=== PATIENT | female | born 1975 ===

== ENCOUNTER 2017-02-21 16:53 | Emergency (ER) | payer OTHER ==
[2017-02-21 16:53] VITALS: BMI 33.8
[2017-02-21 16:59] VITALS: RESP 18; O2SAT 98
--- NOTE | 2017-02-21 17:24 | C.PDOC ---
History Of Present Illness 41 year old female, without a significant PMH, presents to the emergency room for the evaluation of a sore throat, congestion, and dry cough that gradually developed over the past week. Patient reports being unable to sleep last night due to dry cough. Patient also notes chest pain with dry cough. Patient denies any fever, chills, headaches, dizziness, nausea, vomiting, or any other complaints. Time Seen by Provider: 02/21/17 17:09 Chief Complaint (Nursing): Cough, Cold, Congestion History Per: Patient History/Exam Limitations: no limitations Onset/Duration Of Symptoms: Gradual, Other (1 week) Current Symptoms Are (Timing): Still Present Location Of Pain: None Sick Contacts (Context): None Associated Symptoms: Sore Throat, Cough, Nasal Congestion. denies: Fever, Chills, Nausea, Vomiting, Diarrhea Ear Symptoms: Bilateral: None Severity: Mild Recent travel outside of the [place]: No Past Medical History Reviewed: Historical Data, Nursing Documentation, Vital Signs Vital Signs: Last Vital Signs Temp 98.5 F 02/21/17 16:56 Pulse 90 02/21/17 16:56 Resp 18 02/21/17 16:56 BP 132/78 02/21/17 16:56 Pulse Ox 98 02/21/17 17:31 - Medical History PMH: Hypercholesterolemia - [facility] Procedures BILAT TUBAL DIVISION NEC (04/28/14) INJECT RH IMMUNE GLOBUL (04/28/14) LOW CERVICAL (04/28/14) Family History: States: No Known Family Hx - Social History Hx Tobacco Use: No Hx Alcohol Use: No Hx Substance Use: No - Immunization History Hx Tetanus Toxoid Vaccination: Yes (LAST YEAR) Hx Influenza Vaccination: Yes Hx Pneumococcal Vaccination: No Review Of Systems Except As Marked, All Systems Reviewed And Found Negative. Constitutional: Negative for: Fever, Chills ENT: Positive for: Throat Pain (Sore throat), Other (Nasal congestion) Cardiovascular: Positive for: Chest Pain (with dry cough) Respiratory: Positive for: Cough (Dry cough) Gastrointestinal: Negative for: Nausea, Vomiting, Diarrhea Neurological: Negative for: Headache, Dizziness Physical Exam - Physical Exam Appears: Well, Non-toxic, No Acute Distress, Other (occasional cough noted in ED.) Skin: Normal Color, Warm, No Rash Eye(s): bilateral: PERRL Ear(s): Left: TM Erythema, Right: Normal Nose: Discharge (scant B/L discharges) Oral Mucosa: Moist, No Drooling Throat: Normal, No Erythema, No Exudate, No Drooling Neck: Normal ROM, Trachea Midline, Supple Cardiovascular: Rhythm Regular Respiratory: No Decreased Breath Sounds, No Accessory Muscle Use, No Stridor, Wheezing (scattered bibasilar wheezing, BS equal B/L) Gastrointestinal/Abdominal: Soft, No Tenderness Back: No CVA Tenderness Extremity: No Pedal Edema Neurological/Psych: Oriented x3, Normal Speech ED Course And Treatment O2 Sat by Pulse Oximetry: 98 Pulse Ox Interpretation: Normal - Radiology CXR: Interpreted by Me, Viewed By Me CXR Interpretation: Yes: No Acute Disease - Other Rad CXR X-Ray: Read By Radiologist Interpretation: Creator : Devi Fontana MD. Dictator : Devi Fontana MD. Tray Drier Operator : Knit Tubing Dyer : Devi Fontana MD. Approver2 : Report Date : 02/21/2017 17:54:10. My Comment : . HISTORY: Cough. COMPARISON: None available. TECHNIQUE: Chest PA and lateral. FINDINGS: Examination limited by habitus. LUNGS: No focal consolidation. Please note that chest x-ray has limited sensitivity for the detection of pulmonary masses. PLEURA: No significant pleural effusion identified. No definite pneumothorax . CARDIOVASCULAR: The cardiomediastinal silhouette appears within normal limits of size. OSSEOUS STRUCTURES: No acute osseous abnormality identified. VISUALIZED UPPER ABDOMEN: Unremarkable. OTHER FINDINGS: None. IMPRESSION: No focal consolidation, significant pleural effusion, or definite pneumothorax identified. Progress Note: On re-eval, pt is afebrile, hemodynamicaly stable. Non-toxic. [place] Po well in ED. PulseOx 98% RA. ENT: exam c/w left OM. neck: (-) meningeal sign. LUngs: CTA B/L, BS equal B/L. ABd: benign. CXR- normal study. Pt advised. ref. to f/u with PMD in 2-3 days for re-eval. return if any new changes. Disposition Counseled Patient/Family Regarding: Studies Performed, Diagnosis, Need For Followup, Rx Given - Disposition Referrals: [facility] [Outside] Disposition: HOME/ ROUTINE Disposition Time: 18:00 Condition: STABLE Additional Instructions: Encourage fluids Take medication as prescribed Follow up with PMD in 2-3 days for re-evaluation. Return to ED if any worsening or new changes. Prescriptions: Albuterol HFA [Ventolin HFA 90 mcg/actuation (8 g)] 1 puff IH Q6 #1 inhaler Azithromycin 1 tab PO DAILY #4 tab Benzonatate [Tessalon Perle] 100 mg PO TID #14 capsule Prednisone [Deltasone] 20 mg PO DAILY #3 tablet Instructions: Acute Bronchitis (ED), Otitis Media (ED) Print Language: MALIAN - Clinical Impression Clinical Impression: Bronchitis, Otitis media - Scribe Statement The provider has reviewed the documentation as recorded by the Scribchris Montero All medical record entries made by the Billieibchris were at my direction and personally dictated by me. I have reviewed the chart and agree that the record accurately reflects my personal performance of the history, physical exam, medical decision making, and the department course for this patient. I have also personally directed, reviewed, and agree with the discharge instructions and disposition.
[2017-02-21] MEDS ORDERED: Albuterol 0.083% Inhal Sol (2.5 mg/3 mL) UD IH STA (17:25)
[2017-02-21] MEDS ORDERED: Albuterol 0.083% Inhal Sol (2.5 mg/3 mL) UD ONE (17:36)
--- NOTE | 2017-02-21 17:55 | RAD ---
HISTORY: Cough COMPARISON: None available. TECHNIQUE: Chest PA and lateral FINDINGS: Examination limited by habitus. LUNGS: No focal consolidation. Please note that chest x-ray has limited sensitivity for the detection of pulmonary masses. PLEURA: No significant pleural effusion identified. No definite pneumothorax . CARDIOVASCULAR: The cardiomediastinal silhouette appears within normal limits of size. OSSEOUS STRUCTURES: No acute osseous abnormality identified. VISUALIZED UPPER ABDOMEN: Unremarkable. OTHER FINDINGS: None. IMPRESSION: No focal consolidation, significant pleural effusion, or definite pneumothorax identified.
[2017-02-21 18:19] VITALS: BP 127/75; PULSE 78; TEMP 98.3
== END 2017-02-21 18:20 | disposition home or self-care (01) ==
LOC: C.ER 16:53
DX: J40 Bronchitis, not specified as acute or chronic (principal); H66.92 Otitis media, unspecified, left ear

== ENCOUNTER 2019-01-01 13:46 | Emergency (ER) | payer OTHER ==
[2019-01-01 13:47] VITALS: BMI 33.8
[2019-01-01 14:16] VITALS: BP 125/74; PULSE 73; RESP 18; TEMP 97.7; O2SAT 100
--- NOTE | 2019-01-01 14:32 | C.PDOC ---
History Of Present Illness 43 y/o female presents to the ED for evaluation of new-onset left knee pain since last night. She complains of pain to the bilateral knees to the anterior aspect, which worsens on bending and extension. Patient denies any trauma or fall. She also denies any swelling or other associated symptoms. Patient reports limited relief with 400mg Advil. Time Seen by Provider: 01/01/19 14:18 Chief Complaint (Nursing): Lower Extremity Problem/Injury History Per: Patient History/Exam Limitations: no limitations Onset/Duration Of Symptoms: Days Current Symptoms Are (Timing): Still Present Past Medical History Reviewed: Historical Data, Nursing Documentation, Vital Signs Vital Signs: Last Vital Signs Temp 97.7 F 01/01/19 14:14 Pulse 73 01/01/19 14:14 Resp 18 01/01/19 14:14 BP 125/74 01/01/19 14:14 Pulse Ox 100 01/01/19 14:14 - Medical History PMH: Hypercholesterolemia - [facility] Procedures BILAT TUBAL DIVISION NEC (04/28/14) INJECT RH IMMUNE GLOBUL (04/28/14) LOW CERVICAL (04/28/14) Family History: States: Unknown Family Hx - Social History Hx Tobacco Use: No Hx Alcohol Use: No Hx Substance Use: No - Immunization History Hx Tetanus Toxoid Vaccination: Yes (LAST YEAR) Hx Influenza Vaccination: Yes Hx Pneumococcal Vaccination: No Review Of Systems Except As Marked, All Systems Reviewed And Found Negative. Constitutional: Negative for: Fever Cardiovascular: Negative for: Chest Pain Respiratory: Negative for: Shortness of Breath Gastrointestinal: Negative for: Abdominal Pain Musculoskeletal: Positive for: Leg Pain (B/L knee pain) Skin: Negative for: Rash, Lesions Neurological: Negative for: Weakness, Numbness Physical Exam - Physical Exam Appears: Well, Non-toxic, No Acute Distress Skin: Normal Color, Warm, Dry Head: Atraumatic, Normacephalic Eye(s): bilateral: Normal Inspection, PERRL, EOMI Neck: Normal ROM Chest: Symmetrical Respiratory: No Accessory Muscle Use, Other (NARD) Extremity: No Tenderness, No Deformity (or subluxation), No Swelling, Other (Reproducible pain with hyperflexion > extension of left knee) Pulses: Left Dorsalis Pedis: Normal, Right Dorsalis Pedis: Normal Neurological/Psych: Oriented x3, Normal Speech ED Course And Treatment O2 Sat by Pulse Oximetry: 100 (RA) Pulse Ox Interpretation: Normal Medical Decision Making Medical Decision Making: Plan: - 800 mg PO motrin - 50 mg PO tramadol Disposition Counseled Patient/Family Regarding: Diagnosis, Need For Followup, Rx Given - Disposition Referrals: [facility] [Outside] [facility] [Outside] Disposition: HOME/ ROUTINE Disposition Time: 14:31 Condition: IMPROVED Prescriptions: Ibuprofen [Motrin] 600 mg PO Q6 #30 tab Tramadol HCl [Ultram] 50 mg PO QID #20 tab Instructions: Knee Sprain (DC) Forms: [employer] ([place]) - Clinical Impression Clinical Impression: Knee tendonitis - Scribe Statement The provider has reviewed the documentation as recorded by the Favian Ortega Provider Attestation: All medical record entries made by the Favian were at my direction and personally dictated by me. I have reviewed the chart and agree that the record accurately reflects my personal performance of the history, physical exam, medical decision making, and the department course for this patient. I have also personally directed, reviewed, and agree with the discharge instructions and disposition.
== END 2019-01-01 15:06 | disposition home or self-care (01) ==
LOC: C.ER 13:46
DX: M76.9 Unspecified enthesopathy, lower limb, excluding foot (principal)

== ENCOUNTER 2019-01-15 10:32 | Outpatient (CLI) | payer OTHER | END 2019-01-15 10:33 | disposition home or self-care (01) | LOC: C.RADH 10:32 | DX: M25.562 Pain in left knee (principal) ==

== ENCOUNTER 2019-01-23 07:27 | Outpatient (CLI) | payer OTHER | END 2019-01-23 07:28 | disposition home or self-care (01) | LOC: C.MAMMO 07:28 ==